=== PATIENT | male | born 1980 | race Caucasian/White ===

== ENCOUNTER 2023-04-28 10:00 | Outpatient (CLI) | payer BC, SELFPAY ==
--- NOTE | 2023-04-28 11:43 | W.ANESCHARGE ---
Anesthesia Charges Start Date/Time Anesthesia Start Date: 04/28/23 Anesthesia Start Time: 11:12 Stop Date/Time Anesthesia Stop Date: 04/28/23 Anesthesia Stop Time: 11:38
--- NOTE | 2023-04-28 11:47 | W.ANESCHARGE ---
Anesthesia Charges Start Date/Time Anesthesia Start Date: 04/28/23 Anesthesia Start Time: 11:12 Stop Date/Time Anesthesia Stop Date: 04/28/23 Anesthesia Stop Time: 11:38
== END 2023-04-28 10:01 | disposition home or self-care (01) ==
LOC: OP CLINIC 10:05
PROVIDERS: PCP Student in an Organized Health Care Education/Training Program; Visit Provider Internal Medicine Gastroenterology
DX: Z12.11 Encounter for screening for malignant neoplasm of colon (principal); K63.5 Polyp of colon
CPT/HCPCS: 00811; 45385; 88305; J2704